=== PATIENT | female | born 1955 | race Caucasian/White ===

== ENCOUNTER → 2016-10-02 | Outpatient (CLI) | payer OTHER | LOC: FIMAGING 15:06 | PROVIDERS: ATTEND Obstetrics & Gynecology | DX: Z12.31 Encounter for screening mammogram for malignant neoplasm of breast (principal) | CPT/HCPCS: G0202 ==

== ENCOUNTER → 2016-10-18 | Outpatient (CLI) | payer OTHER | LOC: FIMAGING 14:10 | PROVIDERS: ATTEND Obstetrics & Gynecology | DX: N60.02 Solitary cyst of left breast (principal) | CPT/HCPCS: G0204 ==

== ENCOUNTER → 2017-04-06 | Outpatient (CLI) | payer OTHER | LOC: FIMAGING 14:18 | PROVIDERS: ATTEND Family Medicine | DX: N63.20 Unspecified lump in the left breast, unspecified quadrant (principal) | CPT/HCPCS: G0206 ==

== ENCOUNTER 2017-05-12 22:10 | Emergency (ER) | payer OTHER ==
[~2017-05-12 22:10] MED LIST: CALCIUM CHLORIDE 1 GM/10 ML INJ ONE; EPINEPHrine 1 MG/10 ML SYR IVP ONE; SODIUM BICARBONATE 50 MEQ/50 ML SYR ONE
[2017-05-12] MEDS ORDERED: EPINEPHrine 1 MG/10 ML SYR IVP ONE ×3 (22:11→22:18)
[2017-05-12] MEDS ORDERED: SODIUM BICARBONATE 50 MEQ/50 ML SYR IVP ONE (22:13)
[2017-05-12] MEDS ORDERED: CALCIUM CHLORIDE 1 GM/10 ML INJ IV ONE ×2 (22:15→22:18)
--- NOTE | 2017-05-12 22:29 | EDPHY ---
H & P HPI/ROS: HPI CHIEF COMPLAINT: Cardiopulmonary arrest s/p Choking. HISTORY OF PRESENT ILLNESS: This patient is 61-year-old female she presents to the emergency room as a cardiopulmonary arrest status post choking. Patient resides at [place]. She was brought in by EMS after she was found choking on a peanut butter sandwich. Unclear timeline from staff, unclear if [facility] staff witnessed her choking or found her choking, however Patient arrives by EMS in cardiopulmonary arrest. Prior to the patient arriving to the emergency room staff states that she choked on Questionable peanut butter sandwich versus a piece of candy the staff at [place] was unsure. Prior to her arriving to the emergency room the patient received 20 min of cardiopulmonary CPR and ACLS drugs including epinephrine. Upon arrival to the ER she was brought into room ER 2. Where I met her. She was having active CPR in progress. Upon arrival, patient was emergently Intubated by myself. Direct airway visualization her oropharynx was full of foreign debris that appeared to be peatnut-butter. I had to manually remove multiple handfuls of food out of her oropharynx. With direct visualization with the glide scope I was able to visualize her cords however there is a substance that appears to be peanut butter in a posterior pharynx and around her cords. This was suctioned out. Endotracheal tube was placed with direct visualization of the cords by glide scope. A 7 0 endotracheal tube was placed. The patient received multiple rounds of CPR while in the emergency room including multiple mg of epinephrine as well as multiple amps of bicarb and multiple amps of calcium. Please see nursing flow sheet. The patient received 15 mor minutes ACLS protocol. However the patient remained in PA to asystole rhythm. And ultrasound was done to visualize her cardiac activity and there was no cardiac activity seen. Time of was pronounced 2219. Past Medical History: Unknown medical history Past Surgical History: Unknown surgical history Social History: Resides at [place]. Family History: Unknown ROS REVIEW OF SYSTEMS: Limited due the patient presenting and cardiopulmonary arrest. Exam Constitutional unresponsive active CPR Eyes fixed. HENT oropharynx shows a large amount of foreign debris. Respiratory decreased breath sounds bilaterally. Bagging. Cardiovascular no pulse. Gastrointestinal distended abdomen. Musculoskeletal no midline vertebral tenderness, full range of motion, no calf swelling, no tenderness of extremities, no meningismus, good pulses, neurovascularly intact. Skin cool. Neurologic Unresponsive Differential Diagnosis: Includes but is not limited to in a particular order acute hypoxic respiratory failure leading to cardiopulmonary arrest, choking leading to cardiopulmonary arrest, PA arrest, asystole. Medical Decision Making: Plan for this patient she was aggressively resuscitated with ACLS protocol however she remained in PEA. After her multiple rounds of CPR and ACLS drugs the patient did not recover. She was intubated. There was good lung sounds bilaterally. Capnography for change. However despite these efforts was unable to be successfully resuscitated. Critical Care: Total Critical Care Time Spent Managing this Patient: 30 Minutes. This time was spent Exclusively with this patient. This Care was exclusive of procedures. The Organ System/life at risk was cardiopulmonary arrest This Patient was in Critical Condition because cardiopulmonary arrest Indication for the procedure was respiratory arrest. The patient was preoxygenated with 100% oxygen by face mask. The patient was orally endotracheally intubated under direct visualization with a 7.0 ETT. Tracheal intubation was confirmed with direct vis of the cords. breath sounds were auscultated equally bilaterally, but diminished. appropriate color change with [place] CO2 detector, capnography waveform is appropriate, oxygen saturation after procedure is 85%. The procedure was performed by myself. Source: Patient, EMS - Medical/Surgical History Hx Asthma: No Hx Chronic Respiratory Disease: No Hx Diabetes: No Hx Cardiac Disease: No Hx Renal Disease: No Hx Cirrhosis: No Hx Alcoholism: No Hx HIV/AIDS: No Hx Splenectomy or Spleen Trauma: No Other PMH: tremors from medication, shizophrenia - Social History Smoking Status: Never smoked Allergies/Adverse Reactions: Penicillins Allergy (Unknown, Verified 06/02/09 10:48) Unknown Home Medications: Medication Instructions Recorded Calcium Carb W/Vit D [Calcium Carb 500 mg PO BID #30 tab 11/06/13 W/Vit D 500/200 (*)] Levothyroxine [Synthroid 125 mcg 125 mcg PO DAILY10 #30 tab 11/06/13 (*)] Sennosides [Senokot] 2 tab PO BID #60 tab 11/06/13 Venlafaxine Xr [Effexor Xr] 150 mg PO BID #60 cap 11/06/13 Warfarin Sodium [Coumadin 5MG (*)] 15 mg PO DAILY16 #30 tab 11/06/13 cloZAPine [Clozaril (*)] 25 mg PO HS #30 tab 11/06/13 cloZAPine [Clozaril (*)] 100 mg PO HS #30 tab 11/06/13 Medical Decision Making - Data Points Laboratory Results: 05/12/17 22:11 POC Hgb 14.3 gm/dL gm/dL (12.6-16.3) POC Hct 42 % % (38-47) POC Sodium 140 mEq/L mEq/L (135-145) POC Potassium 4.6 mEq/L mEq/L (3.3-5.0) POC Chloride 105 mEq/L mEq/L (97-110) POC BUN 36 mg/dL H mg/dL (7-23) POC Creatinine 1.1 mg/dL H mg/dL (0.6-1.0) POC Glucose 192 mg/dL H mg/dL (70-100) Medications Given: Discontinued Medications Calcium Chloride (Calcium Chloride) 1 gm IV EDNOW ONE Stop: 05/12/17 22:16 Last Admin: 05/12/17 22:15 Dose: 1 gm Calcium Chloride (Calcium Chloride) 1 gm IV EDNOW ONE Stop: 05/12/17 22:19 Last Admin: 05/12/17 22:18 Dose: 1 gm Epinephrine HCl (Epinephrine) 1 mg IVP EDNOW ONE Stop: 05/12/17 22:12 Last Admin: 05/12/17 22:11 Dose: 1 mg Epinephrine HCl (Epinephrine) 1 mg IVP EDNOW ONE Stop: 05/12/17 22:16 Last Admin: 05/12/17 22:15 Dose: 1 mg Epinephrine HCl (Epinephrine) 1 mg IVP EDNOW ONE Stop: 05/12/17 22:19 Last Admin: 05/12/17 22:18 Dose: 1 mg Sodium Bicarbonate (Sodium Bicarbonate) 50 meq IVP EDNOW ONE Stop: 05/12/17 22:14 Last Admin: 05/12/17 22:13 Dose: 50 meq Point of Care Test Results: 05/12/17 22:11 POC Sodium 140 POC Potassium 4.6 POC Chloride 105 POC BUN 36 H POC Creatinine 1.1 H POC Glucose 192 H Departure - Departure Disposition: Clinical Impression: Cardiopulmonary arrest Condition: Critical Referrals: ETHAN LONG [Primary Care Provider] - As per Instructions
== END 2017-05-12 22:20 | disposition expired ==
LOC: EDUNIT# → EDBD
PROC: 0BH17EZ Insertion of Endotracheal Airway into Trachea, Via Natural or Artificial Opening (ICD-10-PCS; principal; 2017-05-12)
PROC: 5A12012 Performance of Cardiac Output, Single, Manual (ICD-10-PCS; 2017-05-12)
DX: I46.9 Cardiac arrest, cause unspecified (principal); Z79.01 Long term (current) use of anticoagulants
CPT/HCPCS: 82947-QW; 96374